=== PATIENT | male | born 1940 | race Caucasian/White ===

== ENCOUNTER 2022-01-15 05:19 | Day surgery (SDC) | payer MEDICARE ==
[~2022-01-15] VITALS: Ht 165.1 cm; Wt 93.6 kg
[2022-01-15] MEDS ORDERED: SODIUM CHLORIDE 0.9% 1,000 ML ONE (05:49)
[2022-01-15] MEDS ORDERED: CLOP75TA60 PO ×2 (06:17→07:11)
[2022-01-15] MEDS ORDERED: ASPI-1450 PO (06:17)
[2022-01-15] MEDS ORDERED: DIAZEPAM 5 MG TABLET ONE (06:39)
[2022-01-15] MEDS ORDERED: DiphenhydrAMINE HCL 50 MG CAPSULE ONE (06:39)
[2022-01-15] MEDS ORDERED: SODIUM CHLORIDE 0.9% 1,000 ML IV ONE (07:00)
[2022-01-15] MEDS ORDERED: DiphenhydrAMINE HCL 50 MG CAPSULE PO ONE (07:00)
[2022-01-15] MEDS ORDERED: DIAZEPAM 5 MG TABLET PO ONE (07:00)
[2022-01-15] MEDS ORDERED: ASPIRIN 81 MG CHEWABLE TABLET PO ONE (07:00)
[2022-01-15] MEDS ORDERED: ATOR40TA28 PO (07:05)
[2022-01-15] MEDS ORDERED: AMLO-257 PO (07:09)
[2022-01-15] MEDS ORDERED: METO25XL PO (07:10)
[2022-01-15] MEDS ORDERED: IOHEXOL 300 MG/ML 50 ML VIAL ONE (07:22)
[2022-01-15] MEDS ORDERED: IOHEXOL 300 MG/ML 150 ML VIAL ONE (07:22)
[2022-01-15] MEDS ORDERED: LIDOCAINE/PF 1% 30 ML VIAL ONE (07:22)
[2022-01-15] MEDS ORDERED: HEPARIN SODIUM 1000 UNITS/NS 1,000 ML ONE (07:22)
[2022-01-15] MEDS ORDERED: SODIUM BICARBONATE 50 MEQ/50 ML VIAL ONE (07:22)
[2022-01-15] MEDS ORDERED: IOHEXOL 300 MG/ML 100 ML VIAL ONE (07:22)
[2022-01-15 07:24] VITALS: BP 114/51
[2022-01-15] MEDS ORDERED: FentaNYL CITRATE PF 100 MCG/2 ML VIAL ONE (07:35)
[2022-01-15] MEDS ORDERED: MIDAZOLAM HCL 2 MG/2 ML VIAL ONE (07:35)
[2022-01-15] MEDS ORDERED: IOHEXOL 300 MG/ML 150 ML VIAL ICOR ONE (07:45)
[2022-01-15] MEDS ORDERED: LIDOCAINE 1% 30 ML/SOD BICARB 8.4% 4 ML SQ ONE (07:45)
[2022-01-15] MEDS ORDERED: FentaNYL CITRATE PF 100 MCG/2 ML VIAL IVP ONE (07:45)
[2022-01-15] MEDS ORDERED: MIDAZOLAM HCL 2 MG/2 ML VIAL IVP ONE (07:45)
[2022-01-15] MEDS ORDERED: HEPARIN SODIUM 1000 UNITS/NS 1,000 ML IARTER ONE (07:45)
[2022-01-15] MEDS ORDERED: SODIUM CHLORIDE 0.9% 500 ML IV ONE (07:45)
[2022-01-15] MEDS ORDERED: HEPARIN SODIUM,PORCINE 5,000 UNITS/ML VIAL IVP ONE (08:00)
[2022-01-15] MEDS ORDERED: IOHEXOL 300 MG/ML 50 ML VIAL ICOR ONE (08:00)
[2022-01-15] MEDS ORDERED: IOHEXOL 300 MG/ML 100 ML VIAL ICOR ONE (08:00)
[2022-01-15] MEDS ORDERED: CLOPIDOGREL BISULFATE 300 MG TABLET ONE (08:25)
[2022-01-15] MEDS ORDERED: NITROGLYCERIN 400 MCG/SUBLINGUAL SPRAY 4.9 GM BOTTLE SL ONE ×4 (08:29→10:00)
[2022-01-15] MEDS ORDERED: CLOPIDOGREL BISULFATE 300 MG TABLET PO ONE (08:30)
[2022-01-15 08:34] VITALS: BP 95/56
[2022-01-15] MEDS ORDERED: MORPHINE SULFATE 2 MG/ML SYRINGE IVP ONE (10:00)
[2022-01-15] MEDS ORDERED: MORPHINE SULFATE 2 MG/ML SYRINGE ONE (10:03)
== END 2022-01-15 14:40 | disposition home or self-care (01) ==
LOC: CATHLAB 05:19
PROVIDERS: ATTEND Internal Medicine Interventional Cardiology
DX: I25.110 Atherosclerotic heart disease of native coronary artery with unstable angina pectoris (principal); Z98.890 Other specified postprocedural states; Z79.899 Other long term (current) drug therapy
CPT/HCPCS: 92978; 92979; 93005; 93458; 99152; 99153; C1753; C1757; C1760; C1874; C1887; C9600; J1644; J2250; J2270; J3010; J3490 ×2; J7030; Q9967 ×3; 75960; 92920; 92928